=== PATIENT | female | born 1960 | race Caucasian/White ===

== ENCOUNTER 2024-03-05 10:51 | Emergency (ER) | payer OTHER ==
[2024-03-05] MEDS: KETOROLAC 30 MG/ML VIAL IM STA (11:20)
[2024-03-05] MEDS: HYDROmorphone 1 MG/ML CARPUJECT IM STA ×2 (11:21→13:07)
--- NOTE | 2024-03-05 13:04 | ED Physician Documentation ---
PD HPI Fall - Stated complaint Stated Complaint: GLF - Chief complaint Chief Complaint: Trauma Hd/Nk - History obtained from History obtained from: Patient, EMS - History of Present Illness Mechanism of injury: Tripped Fall distance: Standing position (recent foot surgery and was using knee scooter that tipped when wheel struck object and caused her to fall forward onto both k nees and wrists. She has post op shoe and can do some weight bearing though painful.) Timing - onset: Today Injury(ies) location: Face (nose, with brief nosebleed. NO facial pain around eyes. Feels mouth area injured but no loose teeth nor pain with mouth opening. No teeth misalignemnet.). No: Head Associated symptoms: No: LOC, AMS Worsens with: Movement (of both wrists.) Contributing factors: No: Anticoagulated Similar symptoms before: Has not had sx before Recently seen: Not recently seen Review of Systems Skin: denies: Abrasion (s), Laceration (s) PD PAST MEDICAL HISTORY - Past Medical History Past Medical History: No Neuro: None - Past Surgical History Past Surgical History: Yes Ortho: Other - Present Medications Home Medications: Ambulatory Orders Medication Instructions Recorded Confirmed Acetaminophen [Tylenol] 650 mg PO Q6H PRN 03/05/24 03/05/24 HYDROcod/ACETAM 5/325 [[place] 5/325] 1 ea PO Q6H PRN #18 tablet 03/05/24 Ibuprofen 200 mg PO PRN PRN 03/05/24 03/05/24 Meloxicam [Mobic] 7.5 mg PO BID 10 Days #20 tablet 03/05/24 oxyCODONE [Roxicodone] 5 mg PO PRN PRN 03/05/24 03/05/24 - Allergies Allergies/Adverse Reactions: Allergies Allergy/AdvReac Type Severity Reaction Status Date / Time No Known Drug Allergies Allergy Verified 03/05/24 11:12 - Social History Does the pt smoke?: No Smoking Status: Never smoker Does the pt drink ETOH?: No Does the pt have substance abuse?: No - Immunizations Immunizations are current?: Yes - POLST Patient has POLST: No PD ED PE NORMAL - Vitals Vital signs reviewed: Yes - General General: Alert and oriented X 3, Well developed/nourished - HEENT HEENT: Atraumatic (scalp without injury. There is tenderness without deformity nor misalignment of the nose and nasal bridge. Eye movment without pain. Normal teeth occlusion and has mouth opening. ) - Neck Neck: Supple, no meningeal sign, No adenopathy - Respiratory Respiratory: Clear bilaterally, Other (no chestwall tenderness. ) - Abdomen Abdomen: Soft, Non tender - Derm Derm: Normal color, Warm and dry - Extremities Extremities: Other (knees with patellar tenderness without effusion nor deformity both sides. both wrists tender with left one moderate swelling but no deformity grossly. Post op shoe noted on left foot. ) - Neuro Neuro: Alert and oriented X 3, No motor deficit, No sensory deficit, Normal speech Results - Vitals Vitals: Vital Signs - 24 hr 03/05/24 03/05/24 11:04 13:43 Temperature 36.5 C Heart Rate 74 82 Respiratory 17 18 Rate Blood Pressure 133/91 H 158/88 H O2 Saturation 98 97 Oxygen O2 Source Room air - Rads (name of study) bilaterlay knees Relevant Findings:: Prelim report reviewed, EMP independent interpretation of test (no fractures) bilateral wrists Relevant Findings:: Prelim report reviewed, EMP independent interpretation of test (both wrists with impactd distal radius fractures, with left intraarticular extension. Ulnar styloid fractures both sides. Minimal angulation left. ) Procedures - Splint (location) - Minor bilateral wrists Splint applied by: Nurse Type of splint: Fiberglass, Short arm Other: Patient tolerated well, No complications, Neurovascular intact, Good alignment, Sling provided PD Medical Decision Making - ED course Complexity details: reviewed results (knee xrays are normal. Wrist xrays show no ndisplaced, minimally angulated colles fractures both sides. ), considered differential (has notable tenderness and pain both wrists. Xrays done showing bilateral impacted distal radius fractures. Splints for both. Had been using knee scooter for left foot recent surgery for bunion. Will not be able to use crutches nor scooter with wrists. Some weight bearing needed. Lives with son.), d/w patient, d/w process improvement consultant (Dr. Wilkerson, ortho, phone consultation about both wrists splinted. Can give 2 slings and use both PRN.) Departure - Departure Disposition: 01 Home, Self Care Clinical Impression: Fall from slip, trip, or stumble, Knee contusion, Wrist fracture, bilateral Condition: Stable Record reviewed to determine appropriate education?: Yes Instructions: ED Fx Colles Wrist No Redu Requ Follow-Up: Orthopedic Care [Provider Group] Prescriptions: Meloxicam [Mobic] 7.5 mg PO BID 10 Days #20 tablet HYDROcod/ACETAM 5/325 [[place] 5/325] 1 ea PO Q6H PRN #18 tablet PRN Reason: Pain Comments: Keep the splint on and keep them clean and dry. Use a sling/slings as needed for elevation of the wrist and comfort. Follow-up with the orthopedic office, call today for an appointment for approximately a week from now. At that point they can reassess the fractures and see if they are holding their position and discuss further treatment. The splints are used initially to accommodate any swelling that might occur. On the follow-up, they will presumably change to real cast that will be more durable. You will likely be in splints or casts for about 6 weeks. Be fairly regular with pain management of both anti-inflammatories such as meloxicam twice daily for the next 7 to 10 days. In addition acetaminophen/Tylenol 500 to 650 mg 4 times daily regularly. To that add hydrocodone/acetaminophen every 4-6 hours if needed for worse pain. This will likely be needed over the initial several days in particular. Ice elevate and rest your wrist often to minimize swelling. Keep rings off the finger etc. in case you develop swelling through the fingers. I sent prescriptions to the [facility] pharmacy. I am prescribing a short course of narcotic pain medication for you. These are potentially dangerous and addictive medications that should be used carefully. These medications may constipate you. Take an [id number] stool softener such as docusate twice daily with plenty of water while taking these medications. If you go 24 hours without a bowel movement, take [id number] MiraLAX, per package instructions. Do not drink or drive while taking these medications. If you received narcotic or sedating medications while in the emergency department do not drive for 24 hours. Store this medication in a safe, secure place and out of reach of children. It is a violation of federal law to give or sell this medication to another person or to use in a manner other than prescribed. The ED will not refill narcotic prescriptions, including prescriptions lost or stolen. You can dispose of unwanted medications at the [facility]'s office or at several pharmacies such as [facility]. Forms: PCP List Discharge Date/Time: 03/05/24 13:43
--- NOTE | 2024-03-05 13:05 | XRAY Report ---
PROCEDURE: Wrist 3+V BL INDICATIONS: fall onto both knees and wrists TECHNIQUE: 7 views of the wrist were acquired. COMPARISON: None. FINDINGS: Bones: Mildly displaced and impacted fracture of the right distal radius. Right ulnar solid fracture . Mild displaced and comminuted fracture of the left distal radius with impaction. Intra-articular ex tension is seen. Mild dorsal angulation of the distal fracture fragment is seen. Left ulnar styloid f racture.. No suspicious bony lesions. Diffusely decreased osseous position. Soft tissues: No suspicious soft tissue calcifications or masses. IMPRESSION: Bilateral impacted distal radial fractures, intra-articular extension is seen on the left. Bilateral displaced ulnar styloid fractures. Reviewed by: Den Otero MD on 03/05/2024 1:03 PM PDT Approved by: Den Otero MD on 03/05/2024 1:03 PM PDT Station ID: [id number]
--- NOTE | 2024-03-05 13:06 | XRAY Report ---
PROCEDURE: Knee 3V BL INDICATIONS: Fall onto both knees and wrists TECHNIQUE: 4 views of the knee(s) were acquired. COMPARISON: None. FINDINGS: Bones: No fractures or dislocations. Patella baja on the left. Mild degenerative changes with osteop hytosis and mild joint space narrowing. No suspicious bony lesions. Soft tissues: No knee joint effusion. No suspicious soft tissue calcifications or masses. IMPRESSION: No acute bony abnormality. Reviewed by: Den Otero MD on 03/05/2024 1:04 PM PDT Approved by: Den Otero MD on 03/05/2024 1:04 PM PDT Station ID: [id number]
[2024-03-05] MEDS: ACETAMINOPHEN 500 MG TABLET PO STA (13:07)
[2024-03-05 13:44] VITALS: BP 158/88; O2SAT 97
== END 2024-03-05 13:43 | disposition home or self-care (01) ==
LOC: ED 10:51
DX: S80.02XA Contusion of left knee, initial encounter (principal); S80.01XA Contusion of right knee, initial encounter; S52.572A Other intraarticular fracture of lower end of left radius, initial encounter for closed fracture; S52.501A Unspecified fracture of the lower end of right radius, initial encounter for closed fracture; S52.612A Displaced fracture of left ulna styloid process, initial encounter for closed fracture; S52.611A Displaced fracture of right ulna styloid process, initial encounter for closed fracture; V00.141A Fall from scooter (nonmotorized), initial encounter; Y93.89 Activity, other specified; Y92.009 Unspecified place in unspecified non-institutional (private) residence as the place of occurrence of the external cause; Z98.890 Other specified postprocedural states
CPT/HCPCS: 29125; 73110; 73562; 96372; 99284; A9270; J1170

== ENCOUNTER 2024-03-10 06:11 | Day surgery (SDC) | payer OTHER ==
[2024-03-10] MEDS ORDERED: ceFAZolin 1 GM VIAL ONE (06:27)
[2024-03-10] MEDS: GABAPENTIN 400 MG CAPSULE ONE (07:06)
[2024-03-10] MEDS: CELECOXIB 100 MG CAPSULE PO ONE (07:06)
[2024-03-10] MEDS ORDERED: BUPIVACAINE 0.25% PF 10 ML VIAL ONE (07:12)
[2024-03-10] MEDS: LACTATED RINGERS 1,000 ML IV ONE ×2 (07:14→08:53)
--- NOTE | 2024-03-10 07:19 | ANESTHESIA ---
Pre-Anesthesia VS, & Labs - Diagnosis left distal raddius fracture - Procedure ORIF left distal radius fracture Vital Signs: Temp Pulse Resp BP Pulse Ox O2 Flow Rate 36.9 C 81 14 139/94 H 99 03/10/24 06:42 03/10/24 06:42 03/10/24 06:42 03/10/24 06:42 03/10/24 06:42 Height: 5 ft 4 in Weight (kg): 60.3 kg Body Mass Index: 22.8 BMI Classification: Normal - NPO >8 hours - Is Patient ?: No Home Medications and Allergies Acetaminophen [Tylenol] 650 mg PO Q6H PRN 03/05/24 Ibuprofen 200 mg PO PRN PRN 03/05/24 oxyCODONE [Roxicodone] 5 mg PO PRN PRN 03/05/24 Allergies/Adverse Reactions: Allergies Allergy/AdvReac Type Severity Reaction Status Date / Time No Known Drug Allergies Allergy Verified 03/10/24 07:03 Anes History & Medical History - Anesthetic History Anesthesia Complications: reports: Post-Operative Nausea/Vomiting - Medical History Cardiovascular: reports: None Pulmonary: reports: None Gastrointestinal: reports: None Urinary: reports: None Neuro: reports: None Musculoskeletal: reports: None Endocrine/Autoimmune: reports: None Skin: reports: None Smoking Status: Never smoker - Surgical History Orthopedic: reports: Other Exam General: Alert, Oriented x3 Dental: WNL Mouth Opening: Greater than 4 Fingerbreadths Neck Mobility: Normal Mallampati classification: II Thyromental Distance: greater than 6 cm Respiratory: Lungs clear Cardiovascular: Regular rate Plan Anesthesia Type: Supraclavicular Block Consent for Procedure(s) Verified and Reviewed: Yes Code Status: Attempt Resuscitation ASA classification: 2-Mild systemic disease Is this case an emergency?: No
[2024-03-10] MEDS ORDERED: LIDOCAINE-PF 2% 10 ML AMP SUBQ ONE (07:24)
[2024-03-10] MEDS ORDERED: fentaNYL 100 MCG/2 ML VIAL ONE (07:24)
[2024-03-10] MEDS ORDERED: PROPOFOL 500 MG/50 ML 500 MG/50 ML VIAL ONE (07:24)
[2024-03-10] MEDS ORDERED: ROPIVACAINE 0.5% PF 20 ML VIAL ONE (07:24)
[2024-03-10] MEDS ORDERED: ACETAMINOPHEN 1,000 MG/100 ML 1,000 MG/100 ML BAG IV ONE (07:24)
[2024-03-10] MEDS ORDERED: MIDAZOLAM 2 MG/2 ML VIAL ONE (07:24)
[2024-03-10] MEDS ORDERED: DEXAMETHASONE 4 MG/ML VIAL ONE (07:25)
[2024-03-10] MEDS ORDERED: ONDANSETRON 4 MG/2 ML VIAL ONE (08:12)
[2024-03-10] MEDS ORDERED: ACETAMINOPHEN 500 MG TABLET PO PRN (08:52)
[2024-03-10] MEDS ORDERED: ONDANSETRON 4 MG/2 ML VIAL IVP PRN (08:52)
[2024-03-10] MEDS ORDERED: oxyCODONE 5 MG TABLET PO PRN (08:52)
[2024-03-10 09:01] VITALS: O2SAT 100
--- NOTE | 2024-03-10 09:19 | ANESTHESIA POST OP EVALUATION ---
Anesthesia Post Eval - Post Anesthesia Eval Vitals: Last Vital Signs Temp 36.0 C L 03/10/24 08:48 Pulse 77 03/10/24 08:48 Resp 16 03/10/24 08:48 BP 167/93 H 03/10/24 08:48 Pulse Ox 100 03/10/24 08:48 O2 Flow Rate CV Function Including HR & BP: Stable Pain Control: Satisfactory Nausea & Vomiting: Negative Mental Status: Baseline Respiratory Status: Airway Patent Hydration Status: Satisfactory Anesthesia Complications: None
[2024-03-10 09:42] VITALS: BP 167/96
--- NOTE | 2024-03-10 09:55 | OPERATIVE REPORT ---
Operative Report - General Procedure Date: 03/10/24 Planned Procedure: LEFT distal radius percutaneous pinning vs open reduction internal fixation of the left distal radius fracture Procedure Performed: Closed reduction and percutaneous pinning of the left distal radius fracture - Procedure Note Primary Surgeon: Yomi Perez Secondary Surgeon: Sy Alva Anesthesia Technique: Regional block Estimated Blood Loss (mL): 5 - Other Other Information/Narrative: Operative Report - General Procedure Date: 03/10/24 Planned Procedure: Closed reduction LEFT distal radius, percutaneous K wire fixation Pre-Op Diagnosis: Closed, displaced, comminuted left distal radius fracture Procedure Performed: Close reduction LEFT distal radius, Multiple percutaneous K wire fixation Post Op Diagnosis: Same as preoperative diagnosis - Procedure Note Primary Surgeon: Yomi Perez MD Secondary Surgeon: Jelena Alva PAC Anesthesia Provider: ELECTRONICS RESEARCH ENGINEER Anesthesia Technique: Moderate sedation, Regional block Estimated Blood Loss (mL): 5cc Indications: This is a 63-year-old woman with a history of a ground-level fall that occurred outdoors about 6 days ago. She had pain and deformity to her LEFT wrist and was seen in the emergency room where she had an attempted closed reduction and splint application. She was seen in my office 1 days ago where she still had persistence of displaced fracture to LEFT distal radius and ulnar styloid. Her skin was intact to LEFT wrist, neurovascular intact, tendon function intact, tenderness to LEFT distal radius and ulna and limited LEFT wrist motion. Her x- rays show a comminuted angulated fracture of the LEFT distal radius with shortening with intra-articular communication of fracture of radial styloid. She also has osteopenia. An informed consent was obtained for closed reduction percutaneous pinning of the right distal radius Findings: The displaced intra-articular and comminuted distal radius fracture was again noted on C arm imaging Complications: None - Other Other Information/Narrative: . The patient was brought to the operating room and was placed in a supine position with the right arm on a arm extension table. The patient received a regional block with supplemental sedation. The LEFT upper extremity was prepped and draped in a sterile manner in the usual fashion. The C-arm image intensifier was utilized and covered with a sterile drape. A timeout procedure was performed by the entire operating room team and all were in agreement. Finger traps were applied to all 5 fingers with a traction bow as well. Longitudinal traction was applied, direct manipulation of the fracture site over a sterile bump. The C-arm image intensifier showed good alignment and a percutaneous pinning was performed with 0.062 K wires. The bare area of the radial styloid was engaged and pin was inserted from the styloid across the fracture to achieve bicortical fixation. An additional K wire from the radial styloid were also inserted to provide 2 bicortical K wires from the radial styloid. 1 additional K wires were inserted from the ulnar corner of the distal radius distally and this was driven from distal to proximal and ulnar to radial. Biplanar and oblique imaging was obtained and there was good alignment of the fixation and fracture. The K wires were cut external to skin and covered with sterile balls. A well-padded short arm fiberglass splint was applied with gauze padding around the K wires. The patient tolerated the procedure well. No tourniquet was utilized.A physician assistant mechanic was medically necessary to help with prepping and draping, positioning, protection of vital structures, assistance during the procedure including traction, dressing and/or splinting.
--- NOTE | 2024-03-10 11:00 | XRAY Report ---
PROCEDURE: OR C-Arm Procedure INDICATIONS: closed reduction perc pinning left distal radius FLUORO TIME: 0:18 MIN TECHNIQUE: Intraoperative views during ORIF of a distal radial fracture. COMPARISON: 03/05/2024 FINDINGS: Comminuted intra-articular distal radial fracture is redemonstrated status post pinning. IMPRESSION: Intraoperative views during pinning of the distal radial fracture. Reviewed by: Den Otero MD on 03/10/2024 9:58 AM JEAN CARLOS Approved by: Den Otero MD on 03/10/2024 9:58 AM JEAN CARLOS Station ID: [id number]
--- NOTE | 2024-03-10 11:36 | XRAY Report ---
PROCEDURE: Wrist 1-2V BL INDICATIONS: POST OPERATIVE IMAGING TECHNIQUE: 3 views of the wrist were acquired. COMPARISON: None. FINDINGS: Bones: Fluoroscopic images demonstrate placement of multiple K wires in the distal left radius. The fracture fragments are now in anatomic alignment. Displaced ulnar styloid fracture is noted. Soft tissues: No suspicious soft tissue calcifications or masses. IMPRESSION: Status post K wire fixation of a distal radial fracture. Reviewed by: Merline Templeton MD on 03/10/2024 11:35 AM PDT Approved by: Merline Templeton MD on 03/10/2024 11:35 AM PDT Station ID: [id number]
== END 2024-03-10 06:12 | disposition home or self-care (01) ==
LOC: SDS 06:11
PROVIDERS: ATTEND Orthopaedic Surgery
DX: S52.572A Other intraarticular fracture of lower end of left radius, initial encounter for closed fracture (principal); S52.512A Displaced fracture of left radial styloid process, initial encounter for closed fracture; W05.1XXA Fall from non-moving nonmotorized scooter, initial encounter
CPT/HCPCS: 25606; 73100; A9270; C1713; J0131; J2795; J7120

== ENCOUNTER 2024-03-18 09:03 | Outpatient (CLI) | payer OTHER ==
--- NOTE | 2024-03-18 13:16 | XRAY Report ---
PROCEDURE: Cervical Spine 2-3V INDICATIONS: NECK PAIN, LEFT SHOULDER PAIN TECHNIQUE: 3 views of the cervical spine were acquired. COMPARISON: None. FINDINGS: Bones: No acute fractures or dislocations to the T1 level. The lateral masses of C1 appear intact o n the odontoid view. No suspicious bony lesions. Multilevel mild disc space narrowing and degenerat ana maria endplate changes. Mild multilevel uncovertebral joint and facet hypertrophy. Soft tissues: No prevertebral soft tissue swelling. IMPRESSION: No acute displaced fracture or traumatic subluxation. Mild multilevel spondylosis. Reviewed by: Marcos Sepulveda MD on 03/18/2024 1:14 PM PDT Approved by: Marcos Sepulveda MD on 03/18/2024 1:14 PM PDT Station ID: [id number]
--- NOTE | 2024-03-18 16:24 | XRAY Report ---
PROCEDURE: Shoulder 2+V LT INDICATIONS: LEFT SHOULDER PAIN TECHNIQUE: 3 views of the shoulder were acquired. COMPARISON: None. FINDINGS: Bones: No acute fractures or dislocations. No suspicious bony lesions. Visualized ribs appear inta ct. Mild to moderate acromioclavicular joint osteoarthrosis. Soft tissues: No suspicious soft tissue calcifications. The visualized lungs are within normal limi ts. IMPRESSION: Mild to moderate acromioclavicular joint osteoarthrosis. Reviewed by: Marcos Sepulveda MD on 03/18/2024 4:22 PM PDT Approved by: Marcos Sepulveda MD on 03/18/2024 4:22 PM PDT Station ID: [id number]
== END 2024-03-18 09:04 | disposition home or self-care (01) ==
LOC: DI 09:03
PROVIDERS: ATTEND Registered Nurse
DX: S06.0X0A Concussion without loss of consciousness, initial encounter (principal); R51.9 Headache, unspecified; M19.012 Primary osteoarthritis, left shoulder; M47.812 Spondylosis without myelopathy or radiculopathy, cervical region

== ENCOUNTER 2024-03-23 10:55 | Outpatient (CLI) | payer OTHER ==
--- NOTE | 2024-03-23 12:39 | XRAY Report ---
PROCEDURE: Wrist 3+V BL INDICATIONS: COLLES FRACTURE OF BILATERAL RADIUS TECHNIQUE: 3 views of the wrist were acquired. COMPARISON: 03/10/2024, 03/05/2024 FINDINGS: Bones: Since the initial exam, there has been further displacement of the medial distal radial fract ure fragment. Radiocarpal alignment remains normal. Slight further dorsal impaction. Redemonstrated d isplaced ulnar styloid fracture. The left wrist demonstrates K wires fixing a comminuted intra-articular fracture. Bone alignment is g rossly normal. Displaced ulnar styloid fracture is stable. Soft tissues: No suspicious soft tissue calcifications or masses. IMPRESSION: Interval removal of right split material and slight further displacement of intra-articular fracture fragments. Stable appearance of left distal radius fracture with K wire fixation. Stable ulnar styloid fractures. Reviewed by: Zamzam Ryan MD on 03/23/2024 12:37 PM PDT Approved by: Zamzam Ryan MD on 03/23/2024 12:37 PM PDT Station ID: [id number]
== END 2024-03-23 10:56 | disposition home or self-care (01) ==
LOC: DI 10:55
PROVIDERS: ATTEND Physician Assistant Surgical
DX: S52.531D Colles' fracture of right radius, subsequent encounter for closed fracture with routine healing (principal); S52.532D Colles' fracture of left radius, subsequent encounter for closed fracture with routine healing

== ENCOUNTER 2024-03-24 16:03 | Outpatient (CLI) | payer OTHER ==
--- NOTE | 2024-03-24 16:45 | CT Report ---
PROCEDURE: Maxillofacial WO INDICATIONS: CONCUSSION, HEADACHE, NASAL PAIN TECHNIQUE: Noncontrast 1.5 mm thick axial images acquired from the mandible through the frontal sinuses, with co emerson and sagittal reformatting. For radiation dose reduction, the following was used: automated ex posure control, adjustment of mA and/or kV according to patient size. 3-D reformatted images were pe rformed. COMPARISON: Correlation is made with the accompanying imaging. FINDINGS: Image quality: Excellent. Bones and teeth: In this patient with this given history, scrutiny is given to the nasal bones and t he nasal septum. No fractures or other significant abnormalities can be seen of these structures. Orbital woodall are intact. Sinus woodall show no fracture or deformity. Visualized portions of the man dible demonstrate no fractures or subluxation. Zygomatic arches are intact. Pterygoid plates are in tact. Visualized portions of the skull base and auditory canals are intact. Sinuses: Paranasal sinuses are aerated, without fluid levels, mucosal thickening, or mucoceles. Mas toid air cells are aerated. The ostiomeatal complexes are patent, yet they are constitutionally narr owed, with bilateral Ruthie cells. Soft tissues: No edema, masses, or fluid collections. No enlarged lymph nodes. No soft tissue lace rations or debris. Vascular: Visualized vascular structures appear normal in the absence of contrast. Bony vascular fo ramina and canals are intact. IMPRESSION: No imaging explanation is found for the patient's presenting symptoms. No fractures or significant bony abnormalities can be seen, including involving the nasal bones and t he nasal septum. Reviewed by: Gary Aguirre MD on 03/24/2024 3:44 PM JEAN CARLOS Approved by: Gary Aguirre MD on 03/24/2024 3:44 PM AKDT Station ID: [id number]
--- NOTE | 2024-03-24 16:46 | CT Report ---
PROCEDURE: Head WO INDICATIONS: CONCUSSION, HEADACHE, NASAL PAIN TECHNIQUE: Noncontrast 4.5 mm thick angled axial sections acquired from the foramen magnum to the vertex. For r adiation dose reduction, the following was used: automated exposure control, adjustment of mA and/or kV according to patient size. COMPARISON: Correlation is made with the accompanying imaging. FINDINGS: Image quality: Excellent. CSF spaces: Basal cisterns are patent. No extra-axial fluid collections. Ventricles are normal in size and shape. Brain: No midline shift. No intracranial masses or hemorrhage. Rosenberg-white matter interface is norm al. Skull and face: Calvarium and visualized facial bones are intact, without suspicious lesions. Hyper ostosis frontalis is incidentally noted, which is not frankly abnormal for a female patient of this a ge. Sinuses: Visualized sinuses and mastoids are clear. IMPRESSION: No imaging explanation is found for the patient's presenting symptoms. No acute intracranial pathology. Reviewed by: Gary Aguirre MD on 03/24/2024 3:45 PM AKDT Approved by: Gary Aguirre MD on 03/24/2024 3:45 PM AKDT Station ID: [id number]
== END 2024-03-24 16:04 | disposition home or self-care (01) ==
LOC: DI 16:03
PROVIDERS: ATTEND Registered Nurse
DX: S06.0X0A Concussion without loss of consciousness, initial encounter (principal); J34.89 Other specified disorders of nose and nasal sinuses; R51.9 Headache, unspecified; M54.2 Cervicalgia; M25.512 Pain in left shoulder

== ENCOUNTER 2024-04-06 13:44 | Outpatient (CLI) | payer OTHER ==
--- NOTE | 2024-04-06 15:23 | XRAY Report ---
PROCEDURE: Wrist 3+V LT INDICATIONS: COLLES FRACTURE LEFT RADIUS TECHNIQUE: 3 views of the wrist were acquired. COMPARISON: 03/23/2024 FINDINGS: Bones: Mildly displaced and comminuted distal radius fracture again seen. A wires have been removed. Ulnar styloid fracture fragment is present. There is evidence of callus formation. Soft tissues: Soft tissue swelling is present. IMPRESSION: Healing comminuted distal radius fracture. Ulnar styloid fracture fragment again seen. K wires have b een removed. Reviewed by: William Delcaruz MD on 04/06/2024 3:22 PM PDT Approved by: William Delacruz MD on 04/06/2024 3:22 PM PDT Station ID: [id number]
== END 2024-04-06 13:45 | disposition home or self-care (01) ==
LOC: DI 13:44
PROVIDERS: ATTEND Physician Assistant Surgical
DX: S52.532D Colles' fracture of left radius, subsequent encounter for closed fracture with routine healing (principal)

== ENCOUNTER 2024-04-27 08:43 | Outpatient (CLI) | payer OTHER ==
--- NOTE | 2024-04-27 09:54 | XRAY Report ---
PROCEDURE: Wrist 3+V BL INDICATIONS: COLLES FRACTURE OF BILATERAL RADIUS TECHNIQUE: 3 views of the bilateral wrists were acquired. COMPARISON: X-ray wrist 03/23/2024, 04/06/2024. FINDINGS: Bones: Bilateral distal radial and ulnar fracture again identified with slight interval callus forma tion. Alignment appears unchanged Soft tissues: Soft tissue swelling of the wrists bilaterally IMPRESSION: Interval callus formation around the bilateral distal radial and ulnar fractures Reviewed by: Jamey Hernández MD on 04/27/2024 9:52 AM PDT Approved by: Jamey Hernández MD on 04/27/2024 9:52 AM PDT Station ID: [id number]
== END 2024-04-27 08:44 | disposition home or self-care (01) ==
LOC: DI 08:43
PROVIDERS: ATTEND Orthopaedic Surgery
DX: S52.531D Colles' fracture of right radius, subsequent encounter for closed fracture with routine healing (principal); S52.532D Colles' fracture of left radius, subsequent encounter for closed fracture with routine healing; S52.601D Unspecified fracture of lower end of right ulna, subsequent encounter for closed fracture with routine healing; S52.602D Unspecified fracture of lower end of left ulna, subsequent encounter for closed fracture with routine healing

== ENCOUNTER 2024-04-27 16:13 | Outpatient (CLI) | payer OTHER ==
--- NOTE | 2024-04-27 21:23 | XRAY Report ---
PROCEDURE: Foot 3+V LT INDICATIONS: LEFT FOOT BUNION TECHNIQUE: 3 views of the foot were acquired. COMPARISON: None. FINDINGS: Bones: No fractures or dislocations. No suspicious bony lesions. Postsurgical changes reflecting f irst digit metatarsal osteotomy is present. There is good anatomic alignment. Hardware is intact with out evidence of hardware fracture or periprosthetic lucency to suggest loosening. Soft tissues: No tibiotalar joint effusion. Achilles tendon appears normal. IMPRESSION: Postsurgical first digit changes as above. Reviewed by: Mary Wu MD on 04/27/2024 9:22 PM PDT Approved by: Mary Wu MD on 04/27/2024 9:22 PM PDT Station ID: [id number]
== END 2024-04-27 16:14 | disposition home or self-care (01) ==
LOC: DI 16:13
PROVIDERS: ATTEND Podiatrist Foot & Ankle Surgery
DX: M21.612 Bunion of left foot (principal)

== ENCOUNTER 2024-05-04 13:15 | Outpatient (CLI) | payer OTHER ==
--- NOTE | 2024-05-04 18:40 | MRI Report ---
PROCEDURE: Shoulder RT WO INDICATIONS: SHOULDER PAIN TECHNIQUE: Noncontrast oblique coronal T2 fast spin echo with fat saturation, oblique sagittal T1 spin echo and T2 fast spin echo with fat saturation, axial T1 spin echo and T2 fast spin echo with fat saturation t hrough the shoulder. COMPARISON: Shoulder radiograph dated 03/18/2024. FINDINGS: Image quality: Excellent. Rotator cuff: Low to moderate grade bursal surface partial-thickness tear involving distal supraspina tus at its insertion on humeral head is seen extending to musculotendinous junction. Low-grade articu lar surface partial-thickness tear involving distal infraspinatus at its insertion on humeral head is seen. Distal subscapularis tendinosis is noted. No significant rotator cuff muscle atrophy on sagit jamal images. Bones and bursae: No bone marrow contusions or fractures. [id number] acromioclavicular joint o steoarthritic changes are seen with joint space narrowing and downward osteophyte formation depressin g on musculotendinous junction of supraspinatus. Type II acromion without an os acromiale. Small amou nt of joint effusion and subacromial subdeltoid bursal fluid is seen, no loose bodies. Capsule and soft tissues: There is presence of subtle labral foramen. No definite focal labral tear. Thickened inferior glenohumeral ligament is seen.. The long head of the biceps tendon demonstrates no rmal location and morphology. The rotator interval appears normal, without fibrosis. The coracohume ral ligament is normal in thickness. IMPRESSION: 1. Low to moderate grade bursal surface partial-thickness tear involving distal supraspinatus extendi ng to musculotendinous junction. Low-grade articular surface partial-thickness involving distal infra spinatus. Distal subscapularis tendinosis. No full-thickness rotator cuff tendon rupture. 2. Mild to moderate acromioclavicular joint osteophyte is. No fracture or dislocation. Small amount o f joint effusion and subacromial subdeltoid bursal fluid, no loose bodies. 3. No definite focal labral tear. 4. Thickened inferior glenohumeral ligament which can be seen associated with clinical diagnosis of a dhesive capsulitis. Reviewed by: Kojo Patel MD on 05/04/2024 6:38 PM PDT Approved by: Kojo Patel MD on 05/04/2024 6:38 PM PDT Station ID: [id number]
--- NOTE | 2024-05-04 19:08 | MRI Report ---
PROCEDURE: Shoulder LT WO INDICATIONS: SHOULDER PAIN TECHNIQUE: Noncontrast oblique coronal T2 fast spin echo with fat saturation, oblique sagittal T1 spin echo and T2 fast spin echo with fat saturation, axial T1 spin echo and T2 fast spin echo with fat saturation t hrough the shoulder. COMPARISON: Shoulder radiograph dated 03/18/2024. FINDINGS: Image quality: Excellent. Rotator cuff: Low-grade articular and bursal surface partial-thickness tear involving distal supraspi natus at its insertion on humeral head is seen extending to musculotendinous junction. Distal infrasp inatus tendinosis is noted. The subscapularis tendinosis is also seen. No full-thickness rotator cuff tendon rupture. No significant rotator cuff muscle atrophy on sagittal images. Bones and bursae: No bone marrow contusions or fractures. [id number] acromioclavicular joint o steoarthritic changes are seen with joint space narrowing and downward osteophyte formation depressin g on musculotendinous junction of supraspinatus. Type I acromion is seen without an os acromiale. Sma ll amount of subacromial subdeltoid bursal fluid is noted, no gross loose bodies. Capsule and soft tissues: Subtle fraying of superior anterior labrum is seen concerning for subtle art perior anterior labral tear. The long head of the biceps tendon appears thickened. The rotator interv al appears normal, without fibrosis. The coracohumeral ligament is normal in thickness. IMPRESSION: 1. Low-grade articular and bursal surface partial-thickness tear involving distal supraspinatus exten ding to musculotendinous junction. Distal infraspinatus and subscapularis tendinosis. No full-thickne ss rotator cuff tendon rupture. 2. [id number] acromioclavicular joint osteoarthritis. No fracture or dislocation. Small subacro mial subdeltoid bursal fluid, no loose bodies. 3. Suggestion of subtle superior anterior labral tear. 4. Proximal long head of biceps tendinosis. Reviewed by: Kojo Patel MD on 05/04/2024 7:06 PM PDT Approved by: Kojo Patel MD on 05/04/2024 7:06 PM PDT Station ID: [id number]
== END 2024-05-04 13:16 | disposition home or self-care (01) ==
LOC: DI 13:15
PROVIDERS: ATTEND Student in an Organized Health Care Education/Training Program
DX: M75.112 Incomplete rotator cuff tear or rupture of left shoulder, not specified as traumatic (principal); M19.012 Primary osteoarthritis, left shoulder; M67.814 Other specified disorders of tendon, left shoulder; M75.111 Incomplete rotator cuff tear or rupture of right shoulder, not specified as traumatic; M19.011 Primary osteoarthritis, right shoulder

== ENCOUNTER 2024-06-02 13:53 | Outpatient (CLI) | payer OTHER ==
--- NOTE | 2024-06-03 16:58 | DEXA Report ---
PROCEDURE: Dexa Spine and/or Hip INDICATIONS: OSTEOPOROSIS TECHNIQUE: Dual energy x-ray absorptiometry (DXA) was performed on a [employer] System. Regions measur ed are the AP Spine, femoral neck, and if needed forearm. COMPARISON: None FINDINGS: Lumbar Spine: Bone Mineral Density: 1.0-1 g/cm/cm,T score: -1.3. Osteopenia Left Femoral Neck: Bone Mineral Density: 0.713 g/cm/cm, T score: -2.3. Left Hip: Bone Mineral Density: 0.760 g/cm/cm,T score: -2. Osteopenia FRAX risk factors: None given. 10 year risk of major osteoporotic fracture: 11.3% major osteoporotic fracture = hip, clinical vertebral, proximal humerus, distal forearm 10 year risk of hip fracture: 2.1% (T score greater or equal to -1.0: NORMAL) (T score from -1.1 to -2.4: OSTEOPENIA) (T score less than or equal to -2.5 to: OSTEOPOROSIS) Impression: By WHO criteria, this patient has low bone density (osteopenia). The 10 year risk of major osteoporotic fracture is 11.3% and of a hip fracture 2.1%. Patients with diagnosis of osteoporosis or osteopenia should have regular bone mineral density assess ment. For those eligible for Medicare, routine testing is allowed once every 2 years. Testing frequ ency can be increased for patients who have rapidly progressing disease or for those who are receivin g medical therapy to restore bone mass. Reviewed by: Leonel Devlin MD on 06/03/2024 4:56 PM PDT Approved by: Leonel Devlin MD on 06/03/2024 4:56 PM PDT Station ID: [id number]
== END 2024-06-02 13:54 | disposition home or self-care (01) ==
LOC: DI 13:53
PROVIDERS: ATTEND Nurse Practitioner Family
DX: M85.89 Other specified disorders of bone density and structure, multiple sites (principal)

== ENCOUNTER 2024-07-08 16:04 | Outpatient (CLI) | payer OTHER ==
--- NOTE | 2024-07-08 21:27 | XRAY Report ---
PROCEDURE: Shoulder 1V LT INDICATIONS: PAIN IN LEFT SHOULDER TECHNIQUE: Single axillary view of the left shoulder COMPARISON: Left shoulder x-ray 03/18/2024 FINDINGS: No acute fracture or dislocation on this single axillary view. No posterior displacement of the humer us relative to the glenoid. No os acromiale. IMPRESSION: No acute fracture or dislocation on the axillary view of the left shoulder. Reviewed by: Warren Grimes MD on 07/08/2024 9:25 PM PDT Approved by: Warren Grimes MD on 07/08/2024 9:25 PM PDT Station ID: [id number]
== END 2024-07-08 16:05 | disposition home or self-care (01) ==
LOC: DI 16:04
PROVIDERS: ATTEND Physician Assistant Surgical
DX: M25.512 Pain in left shoulder (principal)